=== PATIENT | female | born 1995 | race Caucasian/White ===

== ENCOUNTER → 2019-05-08 | Day surgery (SDC) | payer OTHER ==
--- NOTE | 2019-05-09 15:36 | PATH ---
Cytology Non-Gynecological Report Patient Name: MICHELLE GAMBINO [facility]. Rec. #: [id number] /Age/Gender: 1995 (Age: 23) / F Account: [id number] Location: RADIOLOGY INTER Taken: 05/08/2019 Received: 05/08/2019 Reported: 05/09/2019 Physicians: Ana Cristina Cornejo M.D. Specimen(s) Received RIGHT LOBE THYROID FNA Clinical History Right lobe, 0.88 x 0.62 x 0.76 cm Final Diagnosis THYROID, RIGHT LOBE, FINE NEEDLE ASPIRATION: SATISFACTORY FOR EVALUATION. [place] CLASS II: BENIGN. CYTOLOGIC FINDINGS ARE CONSISTENT WITH A BENIGN FOLLICULAR NODULE. SMALL FOLLICULAR CELLS AND THIN COLLOID PRESENT. Electronically Signed Suzette Graff M.D. Gross Description Received are eight direct smears, four of which are air-dried and Diff-Quik stained, and four of which are alcohol fixed and Pap stained. Also received is 20 ml of bloody formalin from which one cellblock is prepared.
== END | disposition home or self-care (01) ==
LOC: JRADIR 09:16
PROVIDERS: ATTEND Internal Medicine Endocrinology, Diabetes & Metabolism
PROC: 0G9H3ZX Drainage of Right Thyroid Gland Lobe, Percutaneous Approach, Diagnostic (ICD-10-PCS; principal; 2019-05-08)
DX: E04.1 Nontoxic single thyroid nodule (principal)
CPT/HCPCS: 76942